=== PATIENT | female | born 1945 | race African-American/Black ===

== ENCOUNTER 2025-01-24 21:21 | Inpatient (IN) | payer BC, MEDICARE ==
[~2025-01-24] VITALS: Ht 157.5 cm; Wt 71.2 kg
[2025-01-24 22:07] LABS: HEMATOCRIT. 26.3 % (36.0-48.0); HEMOGLOBIN. 8.6 g/dL (12.0-16.0); MEAN PLATELET VOLUME 9.9 fl (7.4-10.4); PLATELET 75 x1000/uL (130-400); RED BLOOD CELL COUNT 2.37 mill/uL (4.2-5.4); RED CELL DISTRIBUTION WIDTH 24.6 % (11.6-14.6)
[2025-01-24 22:24] LABS: CREATININE 3.4 mg/dL (0.6-1.0); UREA NITROGEN BLOOD 74 mg/dL (9-23)
[2025-01-24 22:25] LABS: ETHANOL BLOOD < 10 mg/dL (<10)
[2025-01-24 22:33] LABS: LACTIC ACID 3.7 mmol/L (0.4-2.0); TROPONIN I HIGH SENSITIVITY 788 ng/L (3.0-34)
[2025-01-24] MEDS: DEXTROSE 50% WATER 50ML SYRINGE IV SCH (22:45)
[2025-01-24 23:02] LABS: BAND% 1.0 % (1.0-6.0); EOSINOPHILS % MANUAL 1.0 % (0.0-5.0); LYMPHOCYTES % MANUAL 36.0 % (20.0-60.0); MONOCYTES % MANUAL 15.0 % (2.0-8.0); NEUTROPHILS % MANUAL 47.0 % (45.0-75.0); PLATELET ESTIMATE DECREASED
[2025-01-25] VITALS (12 sets, daily range): BP systolic 117–170; BP diastolic 57–107; PULSE 49–94; RESP 13–32; TEMP 36.2–36.9; O2SAT 90–100
[2025-01-25 00:06] LABS: TROPONIN I HIGH SENSITIVITY 671 ng/L (3.0-34)
[2025-01-25] MEDS ORDERED: CLONIDINE 0.1MG TABLET PO PRN (00:30)
[2025-01-25] MEDS ORDERED: ONDANSETRON HCL 4MG/2ML INJ IV PRN (00:30)
[2025-01-25] MEDS ORDERED: ACETAMINOPHEN 325MG TABLET PO PRN (00:30)
[2025-01-25] MEDS ORDERED: IPRATROPIUM/ALBUTEROL 0.5-3(2.5)MG/3ML NEB NEB PRN (00:30)
[2025-01-25] MEDS ORDERED: NALOXONE HCL 0.4MG/ML VIAL IV PRN (00:45)
[2025-01-25] MEDS: SODIUM CHLORIDE 0.9% 1,000 ML IV ONE (01:33)
[2025-01-25] MEDS: FUROSEMIDE 20MG/2ML VIAL IVP SCH (01:36)
[2025-01-25] MEDS: PAMIDRONATE DISODIUM 90 MG in SODIUM CHLORIDE 0.9% 500 ML IV SCH ×2 (02:00→14:54)
[2025-01-25] MEDS ORDERED: PIPERACILLIN/TAZO 3.375G/50ML 50 ML IV SCH ×2 (06:00)
[2025-01-25] MEDS: LACTULOSE 20G/30ML UDC PO SCH (06:00)
[2025-01-25 06:41] LABS: TROPONIN I HIGH SENSITIVITY 806 ng/L (3.0-34)
[2025-01-25] MEDS: DEXT 5%/0.45% NACL 1000ML 1,000 ML IV SCH (08:30)
[2025-01-25] MEDS ORDERED: LIDOCAINE HCL 1% 10 MG/ML 10ML VIAL ONE (10:00)
[2025-01-25] MEDS: MORPHINE SULFATE 2 MG/ML INJ (NOT FOR IM USE) IV PRN ×2 (11:19→22:49)
[2025-01-25 11:51] LABS: CLARITY URINE TURBID (CLEAR); COLOR URINE DARK YELLOW (YELLOW); GLUCOSE URINE 1+ (NEGATIVE); KETONES URINE NEGATIVE (NEGATIVE); LEUKOCYTE ESTERASE URINE TRACE (NEGATIVE); NITRITE URINE NEGATIVE (NEGATIVE); OCCULT BLOOD URINE 2+ (NEGATIVE); PH URINE 5.5 (4.5-8.0); PROTEIN URINE 2+ (NEGATIVE); SPECIFIC GRAVITY URINE 1.019 (1.005-1.030); UROBILINOGEN URINE 1.0 E.U./dL (0.2-1.0)
[2025-01-25 12:04] LABS: SQUAMOUS EPITHELIAL CELL URINE 3+ /lpf (RARE/1+)
[2025-01-25 12:06] LABS: CALCIUM OXALATE CRYSTALS URINE 1+ /lpf
[2025-01-25 12:07] LABS: BACTERIA URINE 3+; RBC URINE 0-2 /hpf (0-2); WBC URINE 0-2 /hpf (0-2)
[2025-01-25 12:29] LABS: *AMPHETAMINES SCREEN URINE NEGATIVE (NEGATIVE)
[2025-01-25 12:30] LABS: *BARBITURATES SCREEN URINE NEGATIVE (NEGATIVE); *BENZODIAZEPINES SCREEN URINE NEGATIVE (NEGATIVE); *COCAINE SCREEN URINE NEGATIVE (NEGATIVE); CANNABINOID URINE SCREEN NEGATIVE (NEGATIVE); ECSTASY MDMA SCREEN URINE NEGATIVE (NEGATIVE); METHADONE URINE SCREEN NEGATIVE (NEGATIVE); OPIATES URINE SCREEN PRESUMPTIVE POSITIVE (NEGATIVE); PHENCYCLIDINE URINE SCREEN NEGATIVE (NEGATIVE)
[2025-01-25] MEDS: PIPERACILLIN/TAZO 3.375G/50ML IV SCH (14:54)
[2025-01-25] MEDS: PANTOPRAZOLE SODIUM 40 MG/VIAL IV SCH (14:54)
[2025-01-25] MEDS: DEXTROSE 5% WATER 1,000 ML IV SCH (20:24)
[2025-01-25] MEDS: HYDROCODONE/ACETAMINOPHEN 5/325MG TABLET PO PRN (21:09)
[2025-01-26] VITALS (12 sets, daily range): BP systolic 98–147; BP diastolic 60–82; PULSE 52–98; RESP 13–27; TEMP 36.4–36.6; O2SAT 92–100
[2025-01-26 00:25] LABS: ASPARTATE AMINOTRANSFERASE 58 IU/L (<34); BILIRUBIN DIRECT 1.5 mg/dL (<=3.0); BILIRUBIN TOTAL 2.2 mg/dL (0.1-1.0); PHOSPHORUS 6.9 mg/dL (2.5-4.9); PROTEIN TOTAL 9.2 g/dL (6.0-8.3)
[2025-01-26 00:58] LABS: TROPONIN I HIGH SENSITIVITY 1311 ng/L (3.0-34)
[2025-01-26 06:46] LABS: CREATININE 4.3 mg/dL (0.6-1.0)
[2025-01-26 06:49] LABS: HEMATOCRIT. 24.7 % (36.0-48.0); HEMOGLOBIN. 7.8 g/dL (12.0-16.0); MEAN PLATELET VOLUME 9.3 fl (7.4-10.4); PLATELET 62 x1000/uL (130-400); RED BLOOD CELL COUNT 2.19 mill/uL (4.2-5.4); RED CELL DISTRIBUTION WIDTH 24.8 % (11.6-14.6)
[2025-01-26 07:42] LABS: UREA NITROGEN BLOOD 103.0 mg/dL (9-23)
[2025-01-26 10:03] LABS: LACTIC ACID 3.1 mmol/L (0.4-2.0)
[2025-01-26 10:13] LABS: BAND% 11.0 % (1.0-6.0); LYMPHOCYTES % MANUAL 61.0 % (20.0-60.0); MONOCYTES % MANUAL 8.0 % (2.0-8.0); NEUTROPHILS % MANUAL 20.0 % (45.0-75.0); NUCLEATED RED BLOOD CELLS 2 /100 WBC
[2025-01-26 10:15] LABS: PLATELET ESTIMATE DECREASED
[2025-01-26 11:30] LABS: INR > 10.0
[2025-01-26] MEDS: PHYTONADIONE 10MG/ML INJ SUBCUT SCH (12:30)
[2025-01-26] MEDS: SODIUM BICARBONATE 100 MEQ in DEXTROSE 5% WATER 900 ML IV SCH (12:30)
[2025-01-26 14:11] LABS: TROPONIN I HIGH SENSITIVITY 1128 ng/L (3.0-34)
[2025-01-26 14:29] LABS: BG BASE EXCESS -3.4 mmol/L (-2.0-3.0); BG CARBOXYHEMOGLOBIN 1.2 % (0.5-1.5); BG DEOXYHEMOGLOBIN 0.7 % (0.0-5.0); BG FRACTION INSPIRED OXYGEN 40; BG HCO3 ACT 21.1 mmol/L (21.0-28.0); BG METHEMOGLOBIN 0.2 % (0.5-1.5); BG OXYGEN SATURATION 99.3 % (94.0-98.0); BG OXYHEMOGLOBIN 97.9 % (94.0-98.0); BG PCO2 35.2 mmHg (32.0-45.0); BG PH 7.395 (7.350-7.450); BG PO2 144.5 mmHg (83.0-108.0); BG SAMPLE SITE RIGHT RADIAL; BG TOTAL HEMOGLOBIN 7.8 g/dL (12.0-16.0); BG VENT MODE NASAL CANNULA
[2025-01-26] MEDS: FUROSEMIDE 40MG/4ML VIAL IVP NR (16:14)
[2025-01-26] MEDS: LACTULOSE 20G/30ML UDC PO SCH (22:01)
[2025-01-27] VITALS (64 sets, daily range): BP systolic 92–159; BP diastolic 48–95; PULSE 57–131; RESP 9–45; TEMP 36.3–36.6; O2SAT 97–100
[2025-01-27 06:03] LABS: HEMATOCRIT. 23.0 % (36.0-48.0); HEMOGLOBIN. 7.4 g/dL (12.0-16.0); MEAN PLATELET VOLUME 9.8 fl (7.4-10.4); PLATELET 57 x1000/uL (130-400); RED BLOOD CELL COUNT 2.09 mill/uL (4.2-5.4); RED CELL DISTRIBUTION WIDTH 24.6 % (11.6-14.6)
[2025-01-27 06:24] LABS: CREATININE 4.5 mg/dL (0.6-1.0)
[2025-01-27 06:28] LABS: UREA NITROGEN BLOOD 106.0 mg/dL (9-23)
[2025-01-27 06:39] LABS: INR > 10.0
[2025-01-27] MEDS ORDERED: ETOMIDATE 2MG/ML 10ML VIAL IV ONE (09:36)
[2025-01-27 10:00] LABS: BAND% 6.0 % (1.0-6.0); EOSINOPHILS % MANUAL 8.0 % (0.0-5.0); NEUTROPHILS % MANUAL 32.0 % (45.0-75.0); NUCLEATED RED BLOOD CELLS 2 /100 WBC
[2025-01-27 10:02] LABS: PLATELET ESTIMATE DECREASED
[2025-01-27] MEDS ORDERED: ATROPINE SULFATE 1MG/10ML SYR IV PRN (16:30)
[2025-01-27 17:05] LABS: BG BASE EXCESS -18.9 mmol/L (-2.0-3.0); BG CARBOXYHEMOGLOBIN 0.3 % (0.5-1.5); BG DEOXYHEMOGLOBIN 2.4 % (0.0-5.0); BG FLOW(L/min) 15.00 L/min; BG FRACTION INSPIRED OXYGEN 100; BG HCO3 ACT 9.5 mmol/L (21.0-28.0); BG METHEMOGLOBIN 0.3 % (0.5-1.5); BG OXYGEN SATURATION 97.6 % (94.0-98.0); BG OXYHEMOGLOBIN 97.0 % (94.0-98.0); BG PCO2 32.3 mmHg (32.0-45.0); BG PH 7.088 (7.350-7.450); BG PO2 133.4 mmHg (83.0-108.0); BG SAMPLE SITE RIGHT RADIAL; BG TOTAL HEMOGLOBIN 8.7 g/dL (12.0-16.0); BG VENT MODE MASK - NRB
[2025-01-27] MEDS: DOPAMINE 400MG/250ML PREMIX 250 ML IV PRN (17:13)
[2025-01-27] MEDS: SODIUM BICARBONATE 8.4% 50MEQ/50ML SYR IV SCH (17:17)
[2025-01-27] MEDS: SODIUM CHLORIDE 0.9% 500 ML IV ONE (17:23)
[2025-01-27 18:21] LABS: BG BASE EXCESS -7.0 mmol/L (-2.0-3.0); BG CARBOXYHEMOGLOBIN 0.3 % (0.5-1.5); BG DEOXYHEMOGLOBIN 0.3 % (0.0-5.0); BG FRACTION INSPIRED OXYGEN 70; BG HCO3 ACT 17.8 mmol/L (21.0-28.0); BG METHEMOGLOBIN 0.4 % (0.5-1.5); BG OXYGEN SATURATION 99.7 % (94.0-98.0); BG OXYHEMOGLOBIN 99.0 % (94.0-98.0); BG PCO2 33.0 mmHg (32.0-45.0); BG PEEP (cmH2O) 5.0 cmH2O; BG PH 7.350 (7.350-7.450); BG PO2 274.4 mmHg (83.0-108.0); BG SAMPLE SITE RIGHT RADIAL; BG TIDAL VOLUME(mL) 450.0 mL; BG TOTAL HEMOGLOBIN 8.4 g/dL (12.0-16.0); BG VENT MODE VENT - AC; BG VENT RATE 26.0 set
[2025-01-27 19:47] LABS: PLATELET 63 x1000/uL (130-400); RED BLOOD CELL COUNT 2.08 mill/uL (4.2-5.4); RED CELL DISTRIBUTION WIDTH 24.8 % (11.6-14.6)
[2025-01-27 19:57] LABS: CREATININE 4.9 mg/dL (0.6-1.0)
[2025-01-27] MEDS: FUROSEMIDE 40MG/4ML VIAL IVP SCH (20:26)
[2025-01-27 20:37] LABS: LACTIC ACID 8.2 mmol/L (0.4-2.0); UREA NITROGEN BLOOD 107.0 mg/dL (9-23)
[2025-01-27] MEDS ORDERED: FAMOTIDINE 20MG/2ML VIAL IV SCH (21:00)
[2025-01-28] VITALS (71 sets, daily range): BP systolic 61–242; BP diastolic 18–161; PULSE 55–141; RESP 17–41; TEMP 36.4–37.1; O2SAT 83–100
[2025-01-28 06:18] LABS: INR > 10.0
[2025-01-28 06:37] LABS: HEMATOCRIT. 22.4 % (36.0-48.0); HEMOGLOBIN. 7.4 g/dL (12.0-16.0); MEAN PLATELET VOLUME 9.5 fl (7.4-10.4); PLATELET 71 x1000/uL (130-400); RED BLOOD CELL COUNT 2.09 mill/uL (4.2-5.4); RED CELL DISTRIBUTION WIDTH 24.9 % (11.6-14.6)
[2025-01-28 08:01] LABS: ATYPICAL LYMPHOCYTES 25; BAND% 17.0 % (1.0-6.0); EOSINOPHILS % MANUAL 1.0 % (0.0-5.0); LYMPHOCYTES % MANUAL 39.0 % (20.0-60.0); MONOCYTES % MANUAL 1.0 % (2.0-8.0); NEUTROPHILS % MANUAL 17.0 % (45.0-75.0); PLATELET ESTIMATE DECREASED
[2025-01-28 08:08] LABS: UREA NITROGEN BLOOD 124.0 mg/dL (9-23)
[2025-01-28 08:09] LABS: CREATININE 5.0 mg/dL (0.6-1.0)
[2025-01-28] MEDS ORDERED: CALCIUM CHLORIDE 1GM/10ML SYR IV ONE (08:55)
[2025-01-28 09:01] LABS: BG BASE EXCESS 0.3 mmol/L (-2.0-3.0); BG CARBOXYHEMOGLOBIN 0.3 % (0.5-1.5); BG DEOXYHEMOGLOBIN 4.5 % (0.0-5.0); BG FRACTION INSPIRED OXYGEN 30; BG HCO3 ACT 23.4 mmol/L (21.0-28.0); BG METHEMOGLOBIN 0.1 % (0.5-1.5); BG OXYGEN SATURATION 95.5 % (94.0-98.0); BG OXYHEMOGLOBIN 95.1 % (94.0-98.0); BG PCO2 31.5 mmHg (32.0-45.0); BG PEEP (cmH2O) 5.0 cmH2O; BG PH 7.488 (7.350-7.450); BG PO2 79.6 mmHg (83.0-108.0); BG SAMPLE SITE RIGHT RADIAL; BG TIDAL VOLUME(mL) 450.0 mL; BG TOTAL HEMOGLOBIN 8.5 g/dL (12.0-16.0); BG VENT MODE VENT - AC; BG VENT RATE 18.0 set
[2025-01-28] MEDS: FAMOTIDINE 20MG/2ML VIAL IV SCH (09:41)
[2025-01-28] MEDS: POTASSIUM CHLORIDE 10MEQ TABLET SR PO SCH (11:05)
[2025-01-28] MEDS: POTASSIUM CHLORIDE 20MEQ TABLET SR PO SCH (11:05)
[2025-01-28] MEDS: PROPOFOL 10MG/ML 100ML 100 ML IV PRN (11:32)
[2025-01-28] MEDS: PHENYLEPHRINE 50MG/250ML PMX 250 ML IV PRN (12:13)
[2025-01-28] MEDS: KCL 10MEQ/50ML PREMIX 50 ML IV SCH (12:14)
[2025-01-28] MEDS ORDERED: NOREPINEPHRINE 8MG/250ML PMX 250 ML IV PRN (12:15)
[2025-01-28] MEDS ORDERED: MAGNESIUM 2 G PREMIX 50 ML IV SCH (12:45)
[2025-01-28] MEDS ORDERED: KCL 20MEQ/100ML PREMIX 100 ML IV SCH (13:00)
[2025-01-30 12:08] LABS: LYMPHOCYTES % MANUAL 48.0 % (20.0-60.0)
[2025-01-30 12:15] LABS: ATYPICAL LYMPHOCYTES 26
== END 2025-01-28 12:49 | DRG 91 ==
LOC: ER 21:21 → EDBEDREQ 22:04 → 5EST 22:45 → EDBEDREQ 22:46 → EDBEDREQSVC 22:46 → ENRESERV 22:54 → CVICU 01-27 16:57
PROVIDERS: ADMIT Internal Medicine; ATTEND Internal Medicine
PROC: 02HV33Z Insertion of Infusion Device into Superior Vena Cava, Percutaneous Approach (ICD-10-PCS; 2025-01-25)
PROC: B548ZZA Ultrasonography of Superior Vena Cava, Guidance (ICD-10-PCS; 2025-01-25)
PROC: 5A1935Z Respiratory Ventilation, Less than 24 Consecutive Hours (ICD-10-PCS; 2025-01-27)
PROC: 0BH17EZ Insertion of Endotracheal Airway into Trachea, Via Natural or Artificial Opening (ICD-10-PCS; 2025-01-27)
PROC: 5A12012 Performance of Cardiac Output, Single, Manual (ICD-10-PCS; principal; 2025-01-28)
DX: G92.8 Other toxic encephalopathy (principal); D65 Disseminated intravascular coagulation [defibrination syndrome]; J96.21 Acute and chronic respiratory failure with hypoxia; N17.0 Acute kidney failure with tubular necrosis; I21.4 Non-ST elevation (NSTEMI) myocardial infarction; E87.0 Hyperosmolality and hypernatremia; E87.20 Acidosis, unspecified; R18.8 Other ascites; C90.00 Multiple myeloma not having achieved remission; E72.20 Disorder of urea cycle metabolism, unspecified; I13.0 Hypertensive heart and chronic kidney disease with heart failure and stage 1 through stage 4 chronic kidney disease, or unspecified chronic kidney disease; C79.51 Secondary malignant neoplasm of bone; E83.52 Hypercalcemia; D64.9 Anemia, unspecified; E16.2 Hypoglycemia, unspecified; N18.9 Chronic kidney disease, unspecified; E83.39 Other disorders of phosphorus metabolism; E86.1 Hypovolemia; I48.0 Paroxysmal atrial fibrillation; I50.9 Heart failure, unspecified; J44.9 Chronic obstructive pulmonary disease, unspecified; Z79.01 Long term (current) use of anticoagulants; Z99.81 Dependence on supplemental oxygen
CPT/HCPCS: 31500; 31720; 36415; 36573; 36600; 71045; 71250; 74176; 76705; 80048; 80076; 80305; 80320; 81003; 82140; 82330; 82375; 82805; 82962; 83605; 83880; 84100; 84484; 85025; 85027; 93005; 93970; 94002; 94003; 94070; 94664; 97162; 98960; 99291; 99292; A4606; C1725; J1265; J1308; J1940; J2003; J2270; J2371; J2430; J2470; J2543; J2704; J3430; J3480; J3490; J7040; J7070; G0480